=== PATIENT | female | born 2000 | race Caucasian/White ===

== ENCOUNTER 2023-03-19 21:05 | Inpatient (IN) | payer SELFPAY ==
[~2023-03-19] VITALS: Ht 157.5 cm; Wt 71.6 kg
[2023-03-19] MEDS ORDERED: PRENTAB9 PO (21:23)
[2023-03-19] MEDS ORDERED: TUMS750C5 PO (21:23)
[2023-03-19] MEDS ORDERED: HOME MED LIST COMPLETE! XX SCH (21:30)
[2023-03-19] MEDS ORDERED: METHYLERGONOVINE MALEATE 0.2MG/ML 1ML VIAL IM PRN (21:55)
[2023-03-19] MEDS ORDERED: OXYTOCIN DRIP 30 UNITS in IV 1 EA IV PRN ×4 (21:55)
[2023-03-19] MEDS ORDERED: LIDOCAINE 1% MDV 20ML VIAL INFIL PRN (21:55)
[2023-03-19] MEDS ORDERED: TRANEXAMIC ACID INJection 1,000 MG in NS 100 ML IV PRN (21:55)
[2023-03-19] MEDS ORDERED: LACTATED RINGER'S 1000 ML IV STA (21:55)
[2023-03-19 22:09] LABS: HEMATOCRIT 32.4 % (36.0-47.0); HEMOGLOBIN 10.5 g/dl (12.0-15.5); MEAN CORPUSCULAR HGB CONC 32.4 g/dl (32.0-36.5); MEAN CORPUSCULAR VOLUME 83.3 fl (80.0-96.0); PLATELET COUNT, AUTOMATED 267 10^3/uL (150-450); RED BLOOD COUNT 3.89 10^6/uL (4.00-5.40); WHITE BLOOD COUNT 9.7 10^3/uL (4.0-10.0)
[2023-03-19] MEDS ORDERED: NALOXONE INJ 0.4MG/1ML VIAL IV PRN (22:50)
[2023-03-19] MEDS ORDERED: LR 500 ML IV PRN (22:50)
[2023-03-19] MEDS ORDERED: ONDANSETRON 4MG 2ML VIAL IV PRN (22:50)
[2023-03-19] MEDS ORDERED: diphenhydrAMINE 50MG/ML VIAL IV PRN (22:50)
[2023-03-19] MEDS ORDERED: FENTANYL/ROPIVACAINE/NACL BAG 100 ML EPIDURAL SCH (22:50)
[2023-03-19] MEDS ORDERED: EPIDURAL/PCA KEYS XX PRN (22:50)
[2023-03-19] MEDS: LR 1,000 ML IV SCH (22:56)
[2023-03-19] MEDS: ePHEDrine SULFATE 25 MG/5 ML(5MG/ML) SYRINGE IVP PRN (23:46)
[2023-03-20] VITALS (27 sets, daily range): BP systolic 75–172; BP diastolic 38–119; O2SAT 98
[2023-03-20] MEDS: ePHEDrine SULFATE 25 MG/5 ML(5MG/ML) SYRINGE IVP PRN ×2 (00:01→00:55)
[2023-03-20] MEDS: LR 1,000 ML IV SCH (00:55)
[2023-03-20] MEDS ORDERED: IBUPROFEN 600MG TAB PO PRN (03:35)
[2023-03-20] MEDS ORDERED: ACETAMINOPHEN 500 MG TAB PO PRN (03:35)
[2023-03-20] MEDS ORDERED: METHYLERGONOVINE MALEATE 0.2 MG TAB PO PRN (03:35)
[2023-03-20] MEDS ORDERED: DOCUSATE SODIUM 100MG CAPSULE PO PRN (03:35)
[2023-03-20] MEDS ORDERED: OXYTOCIN DRIP 30 UNITS in IV 1 EA IV SCH (03:35)
[2023-03-20] MEDS ORDERED: ACETAMINOPHEN TAB 650MG DOSE (2X325MG) PO PRN (03:35)
[2023-03-20] MEDS: PRENATAL VITAMINS CHEWABLE TABLET PO SCH (08:19)
[2023-03-20] MEDS: DIBUCAINE 1% OINTMENT 30GM TOP PRN (08:20)
[2023-03-20] MEDS: IBUPROFEN 800 MG TAB PO PRN (12:20)
[2023-03-21] MEDS: IBUPROFEN 800 MG TAB PO PRN ×2 (01:34→08:52)
[2023-03-21] MEDS ORDERED: MOM 30ML SUSPENSION UDC PO PRN (01:50)
[2023-03-21] MEDS ORDERED: CYCLOBENZAPRINE 10MG TABLET PO ONE (02:00)
[2023-03-21] MEDS ORDERED: SIMETHICONE 80MG CHEW TAB PO PRN (04:00)
[2023-03-21 06:00] VITALS: BP 112/58; O2SAT 97
[2023-03-21] MEDS: PRENATAL VITAMINS CHEWABLE TABLET PO SCH (08:51)
[2023-03-21] MEDS: DIBUCAINE 1% OINTMENT 30GM TOP PRN (08:52)
== END 2023-03-21 13:11 | disposition home or self-care (01) | DRG 560 ==
LOC: M LDO 21:05 → M LDI 21:40 → M OBS 03-20 06:32
PROVIDERS: ADMIT Obstetrics & Gynecology; ATTEND Advanced Practice Midwife
PROC: 10E0XZZ Delivery of Products of Conception, External Approach (ICD-10-PCS; principal; 2023-03-20)
PROC: 10907ZC Drainage of Amniotic Fluid, Therapeutic from Products of Conception, Via Natural or Artificial Opening (ICD-10-PCS; 2023-03-20)
PROC: 0HQ9XZZ Repair Perineum Skin, External Approach (ICD-10-PCS; 2023-03-20)
DX: O70.0 First degree perineal laceration during delivery (principal); Z37.0 Single live birth; Z3A.38 38 weeks gestation of pregnancy

== ENCOUNTER 2023-07-31 06:07 | Day surgery (SDC) | payer OTHER ==
[~2023-07-31] VITALS: Ht 157.5 cm; Wt 62.6 kg
[~2023-07-31 06:07] MED LIST: PRENTAB9 PO; TUMS750C5 PO
[2023-07-31] MEDS ORDERED: LR 1,000 ML IV SCH (06:30)
[2023-07-31 06:48] LABS: HEMATOCRIT 40.6 % (36.0-47.0); HEMOGLOBIN 13.5 g/dl (12.0-15.5)
[2023-07-31] MEDS ORDERED: SUGAMMADEX SODIUM 500 MG/5 ML VIAL (BRIDION) As Ordered ONE (06:51)
[2023-07-31] MEDS ORDERED: ROCURONIUM BROMIDE 50MG/5ML VIAL As Ordered ONE (06:51)
[2023-07-31] MEDS ORDERED: LIDOCAINE 2% 100MG/5ML SDV (FOR ANES.) As Ordered ONE (06:51)
[2023-07-31] MEDS ORDERED: ONDANSETRON 4MG 2ML VIAL As Ordered ONE (06:51)
[2023-07-31] MEDS ORDERED: propofoL 200 MG/20 ML VIAL As Ordered ONE (06:51)
[2023-07-31] MEDS ORDERED: fentaNYL 100 MCG/2 ML INJECTION As Ordered ONE (06:58)
[2023-07-31] MEDS ORDERED: HYDROmorphone HCL 2MG/ML 1ML VIAL As Ordered ONE (06:58)
[2023-07-31] MEDS ORDERED: MIDAZOLAM INJ 2MG/2ML VIAL As Ordered ONE (06:58)
[2023-07-31] MEDS ORDERED: KETOROLAC 60MG 2ML VIAL As Ordered ONE (07:00)
[2023-07-31] MEDS ORDERED: SCOPOLAMINE 1MG TRANSDERMAL PATCH As Ordered ONE (07:31)
[2023-07-31] MEDS ORDERED: ACETAMINOPHEN 1000MG 100ML IV BAG As Ordered ONE (07:53)
[2023-07-31] MEDS ORDERED: MEPERIDINE 50 MG/ML 1ML VIAL As Ordered ONE (08:28)
[2023-07-31] MEDS ORDERED: fentaNYL 100 MCG/2 ML INJECTION IV PRN (08:30)
[2023-07-31] MEDS ORDERED: ONDANSETRON 4MG 2ML VIAL IV PRN (08:30)
[2023-07-31] MEDS ORDERED: METOCLOPRAMIDE INJ 10MG/2ML VIAL IV PRN (08:30)
[2023-07-31] MEDS ORDERED: oxyCODONE 5MG TAB PO PRN (08:30)
[2023-07-31] MEDS ORDERED: HYDROMORPHONE HCL 0.5 MG/ 0.5 ML SYRINGE IV PRN (08:30)
[2023-07-31 11:40] VITALS: BP 99/63; TEMP 97.4; O2SAT 98
== END 2023-07-31 11:55 | disposition home or self-care (01) ==
LOC: M SDC 06:07
PROVIDERS: ATTEND Obstetrics & Gynecology
DX: Z30.2 Encounter for sterilization (principal); F17.290 Nicotine dependence, other tobacco product, uncomplicated
CPT/HCPCS: 36415; 58661; 81025; 85014; 85018; 88302; J0131; J0665; J1100; J1170; J1885; J2175; J2250; J2405; J3010